=== PATIENT | male | born 1990 | race Caucasian/White ===

== ENCOUNTER 2018-03-27 10:22 | Emergency (ER) | payer OTHER ==
--- NOTE | 2018-03-27 11:25 | ER Document Report ---
ED GI Bleed / Rectal Pain - General Chief Complaint: Rectal Bleeding Stated Complaint: BLOODY STOOLS, LEFT FOOT SWELLING Time Seen by Provider: 03/27/18 10:47 Notes: 27-year-old male to the emergency department for evaluation of rectal bleeding. Patient states that over the last several days he has had increased amount of blood in his stool. Denies any pain. Denies any weakness, chills, sweats or other issues. Patient is a 6 foot male who weighs approximately 450 pounds. 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 Has also noticed that his increasing amount of swelling in his feet. Intermittent shortness of breath at times. Does endorse a fairly poor diet. No other significant problems. Strong family history of heart disease and obesity. Father had open heart surgery and bypass surgery. TRAVEL OUTSIDE OF THE [place] IN LAST 30 DAYS: No - HPI Patient complains to provider of: Bright red bld from rect. Onset: Last week Timing/Duration: Constant Quality of pain: No pain - Related Data Allergies/Adverse Reactions: No Known Allergies Allergy (Verified 03/27/18 10:27) Past Medical History - General Information source: Patient - Social History Smoking Status: Former Smoker Chew tobacco use (# tins/day): Yes Frequency of alcohol use: Social Drug Abuse: None Lives with: Spouse/Significant other Family History: Reviewed & Not Pertinent Patient has suicidal ideation: No Patient has homicidal ideation: No Renal/ Medical History: Denies: Hx Peritoneal Dialysis - Immunizations Hx Diphtheria, Pertussis, Tetanus Vaccination: Yes Review of Systems - Review of Systems Notes: Constitutional: denies: Chills, Diaphoresis, Fever, Malaise, Weakness EENT: denies: Eye discharge, Blurred vision, Tearing, Double vision, Nose congestion, Nose discharge, Throat swelling, Mouth pain Cardiovascular: denies: Palpitations, Heart racing, Orthopnea, Chest pain. Possible sleep apnea, complaining of some peripheral edema Respiratory: denies: Cough, Hurts to breathe, Wheezing, Shortness of breath Gastrointestinal: denies: Abdominal pain, Diarrhea, Nausea, Vomiting, Black stools,. Complaining of some bright red blood in the stool. Genitourinary: denies: Burning, Dysuria, Discharge, Frequency, Flank pain, Hematuria Musculoskeletal: denies: Joint pain, Joint swelling, Muscle pain, Muscle stiffness, back pain Hematologic/Lymphatic: denies: Anemia, Easy bleeding, Easy bruising, Blood clots Neurological/Psychological: denies: Confusion, Dementia, Depression, Loss of consciousness Skin: No lesions, no masses, no skin breakdown, no abscesses Physical Exam - Vital signs Vitals: Temp Pulse Resp BP Pulse Ox 97.8 F 72 14 143/83 H 97 03/27/18 10:38 03/27/18 10:38 03/27/18 10:38 03/27/18 10:38 03/27/18 10:38 Interpretation: Normal - General General appearance: Appears well, Alert - HEENT Head: Normocephalic, Atraumatic Eyes: Normal Pupils: PERRL - Respiratory Respiratory status: No respiratory distress Chest status: Nontender Breath sounds: Normal Chest palpation: Normal - Cardiovascular Rhythm: Regular Heart sounds: Normal auscultation Murmur: No - Abdominal Inspection: Normal Distension: No distension Bowel sounds: Normal Tenderness: Nontender Organomegaly: No organomegaly - Rectal Tenderness: No Stool: Heme positive Hemorrhoids: Internal, External Prostate: Normal - Back Back: Normal, Nontender - Extremities General upper extremity: Normal inspection, Nontender, Normal color, Normal ROM , Normal temperature General lower extremity: Normal inspection, Nontender, Edema - Trace edema bilateral lower extremities, Normal color, Normal ROM, Normal temperature, Normal weight bearing. No: Nicolasa's sign - Neurological Neuro grossly intact: Yes Cognition: Normal Orientation: AAOx4 [place] Coma Scale Eye Opening: Spontaneous [place] Coma Scale Verbal: Oriented [place] Coma Scale Motor: Obeys Commands [place]ung Coma Scale Total: 15 Speech: Normal Motor strength normal: LUE, RUE, LLE, RLE Sensory: Normal - Psychological Associated symptoms: Normal affect, Normal mood - Skin Skin Temperature: Warm Skin Moisture: Dry Skin Color: Normal Course - Re-evaluation Re-evalutation: 03/27/18 12:44 Laboratory 03/27/18 03/27/18 03/27/18 11:15 11:36 11:36 WBC 11.9 H RBC 5.18 Hgb 15.0 Hct 44.0 MCV 85 MCH 29.0 MCHC 34.1 RDW 13.9 Plt Count 338 Seg Neutrophils % 64.5 Lymphocytes % 24.1 Monocytes % 6.3 Eosinophils % 4.2 Basophils % 0.9 Absolute Neutrophils 7.7 Absolute Lymphocytes 2.9 Absolute Monocytes 0.7 Absolute Eosinophils 0.5 Absolute Basophils 0.1 PT 12.9 INR 0.93 APTT 32.1 Sodium Potassium Chloride Carbon Dioxide Anion Gap BUN Creatinine Est GFR ( Amer) Est GFR (Non-Af Amer) Glucose Hemoglobin A1c % Calcium Total Bilirubin Direct Bilirubin Neonat Total Bilirubin Neonat Direct Bilirubin Neonat Indirect Bili AST ALT Alkaline Phosphatase NT-Pro-B Natriuret Pep Total Protein Albumin Triglycerides Cholesterol LDL Cholesterol Direct VLDL Cholesterol HDL Cholesterol Stool Occult Blood POSITIVE 03/27/18 03/27/18 03/27/18 11:36 11:36 11:36 WBC RBC Hgb Hct MCV MCH MCHC RDW Plt Count Seg Neutrophils % Lymphocytes % Monocytes % Eosinophils % Basophils % Absolute Neutrophils Absolute Lymphocytes Absolute Monocytes Absolute Eosinophils Absolute Basophils PT INR APTT Sodium 141.1 Potassium 4.3 Chloride 102 Carbon Dioxide 33 H Anion Gap 6 BUN 14 Creatinine 0.93 Est GFR ( Amer) > 60 Est GFR (Non-Af Amer) > 60 Glucose 95 Hemoglobin A1c % 5.3 Calcium 9.1 Total Bilirubin 0.6 Direct Bilirubin 0.1 Neonat Total Bilirubin Not Reportable Neonat Direct Bilirubin Not Reportable Neonat Indirect Bili Not Reportable AST 23 ALT 36 Alkaline Phosphatase 75 NT-Pro-B Natriuret Pep 38 Total Protein 7.1 Albumin 4.0 Triglycerides 124 Cholesterol 129.65 LDL Cholesterol Direct 55 VLDL Cholesterol 25.0 HDL Cholesterol 55 Stool Occult Blood 03/27/18 12:[address] Montalvo with gastroenterology. Does not feel patient needs to have an emergent endoscopy however would love to see patient as an outpatient. At this time I am going to recommend some treatment for hemorrhoids. Will need good close follow-up for possible colonoscopy. This is explained to the patient. Currently he has no abdominal symptoms and no pain so no CT scan is warranted in my opinion. Even though he has reported some lower extremity edema there is no signs of heart failure with a normal chest x-ray and a normal BNP as well as EKG. His hemoglobin A1c is 5.3 and his lipid panel is fairly unremarkable with the exception of some elevated triglycerides which would be consistent with what he is telling me that he eats a lot of carbohydrates. I have given him a long consultation with regards to weight loss. Currently recommend that he return with he begins to feel lightheaded, dizzy, develops abdominal pain, fever, worsening bleeding or other concerns. - Vital Signs Vital signs: Temp Pulse Resp BP Pulse Ox 97.8 F 72 14 143/83 H 97 03/27/18 10:38 03/27/18 10:38 03/27/18 10:38 03/27/18 10:38 03/27/18 10:38 - Laboratory Result Diagrams: 03/27/18 11:36 03/27/18 11:36 Laboratory results interpreted by me: 03/27/18 03/27/18 11:36 11:36 WBC 11.9 H Carbon Dioxide 33 H - EKG Interpretation by Me EKG shows normal: Sinus rhythm, [place], Intervals, QRS Complexes, ST-T Waves Discharge - Discharge Clinical Impression: Rectal bleed, Morbid obesity Condition: Good Disposition: HOME, SELF-CARE Instructions: Rectal Bleeding, Unclear Cause ([facility]), Hemorrhoids ([facility]), HC Hemorrhoid Cream ([facility]) Prescriptions: Hydrocortisone [Procto-Kit] 28.35 gm RC QHS 5 Days #2 cream.gm. Referrals: YAZ PEDRO MD [ACTIVE STAFF] - Follow up in 3-5 days
[2018-03-27 11:48] LABS: ABSOLUTE BASOPHILS # (AUTO) 0.1 10^3/uL (0.0-0.2); ABSOLUTE EOSINOPHILS # (AUTO) 0.5 10^3/uL (0.0-0.6); ABSOLUTE LYMPHOCYTES (AUTO) 2.9 10^3/uL (0.5-4.7); ABSOLUTE MONOCYTES (AUTO) 0.7 10^3/uL (0.1-1.4); ABSOLUTE NEUT (AUTO) 7.7 10^3/uL (1.7-8.2); BASOPHILS % (AUTO) 0.9 % (0-2); EOSINOPHILS % (AUTO) 4.2 % (0-6); LYMPHOCYTES % (AUTO) 24.1 % (13-45); MEAN CORPUSCULAR HGB CONC 34.1 g/dL (32.0-36.0); MEAN CORPUSCULAR VOLUME 85 fl (80-97); MONOCYTES % (AUTO) 6.3 % (3-13); PLATELET COUNT 338 10^3/uL (150-450); RED BLOOD COUNT 5.18 10^6/uL (4.35-5.55); RED CELL DISTRIBUTION WIDTH 13.9 % (11.5-14.0); SEGMENTED NEUTROPHILS % (AUTO) 64.5 % (42-78); TOTAL CELLS COUNTED % (AUTO) 100 %; WHITE BLOOD COUNT 11.9 10^3/uL (4.0-10.5)
[2018-03-27 11:57] LABS: INTERNATIONAL RATION (INR) 0.93; PROTHROMBIN TIME 12.9 SEC (11.4-15.4)
[2018-03-27 11:58] LABS: PARTIAL THROMBOPLASTIN TIME 32.1 SEC (23.5-35.8)
[2018-03-27 12:21] LABS: ALANINE AMINOTRANSFERASE 36 U/L (21-72); ALKALINE PHOSPHATASE 75 U/L (38-126); ANION GAP 6 (5-19); ASPARTATE AMINO TRANSFERASE 23 U/L (17-59); BILIRUBIN,DIRECT 0.1 mg/dL (0.0-0.4); BILIRUBIN,TOTAL 0.6 mg/dL (0.2-1.3); BLOOD UREA NITROGEN 14 mg/dL (7-20); CALCIUM 9.1 mg/dL (8.4-10.2); CARBON DIOXIDE 33 mmol/L (22-30); CHLORIDE 102 mmol/L (98-107); CHOLESTEROL 129.65 mg/dL (0-200); GLUCOSE 95 mg/dL (75-110); POTASSIUM 4.3 mmol/L (3.6-5.0); SODIUM 141.1 mmol/L (137-145); TOTAL PROTEIN 7.1 g/dL (6.3-8.2); TRIGLYCERIDES 124 mg/dL (<150)
[2018-03-27 12:31] LABS: DIRECT LDL 55 mg/dL (<100)
--- NOTE | 2018-03-27 12:34 | RADIOLOGY REPORT (SQ) ---
EXAM DESCRIPTION: CHEST SINGLE VIEW COMPLETED DATE/TIME: 03/27/2018 11:57 am REASON FOR STUDY: sob COMPARISON: None. EXAM PARAMETERS: NUMBER OF VIEWS: One view. TECHNIQUE: Single frontal radiographic view of the chest acquired. RADIATION DOSE: NA LIMITATIONS: None. FINDINGS: LUNGS AND PLEURA: No opacities, masses or pneumothorax. No pleural effusion. MEDIASTINUM AND HILAR STRUCTURES: No masses. Contour normal. HEART AND VASCULAR STRUCTURES: Heart normal in size. Normal vasculature. BONES: No acute findings. HARDWARE: None in the chest. OTHER: No other significant finding. IMPRESSION: NO ACUTE RADIOGRAPHIC FINDING IN THE CHEST. TECHNICAL DOCUMENTATION: JOB ID: [id number] [employer]- All Rights Reserved Reading location - IP/workstation name: [email or web address]
[2018-03-27 13:26] VITALS: BP 126/74
--- NOTE | 2018-03-27 21:08 | EKG REPORT ---
SEVERITY:- BORDERLINE ECG - SINUS RHYTHM INFERIOR Q WAVES, PROBABLY NORMAL VARIATION : Confirmed by: Leo Garcia 27-Mar-2018 21:06:48
== END 2018-03-27 13:27 | disposition home or self-care (01) ==
LOC: ER 10:22
DX: K62.5 Hemorrhage of anus and rectum (principal); E66.01 Morbid (severe) obesity due to excess calories; R60.0 Localized edema; R06.02 Shortness of breath; Z82.49 Family history of ischemic heart disease and other diseases of the circulatory system; Z83.49 Family history of other endocrine, nutritional and metabolic diseases; Z87.891 Personal history of nicotine dependence
CPT/HCPCS: 36415; 71045; 80053; 80061; 82272; 83036; 83880; 84443; 85025; 85610; 85730; 93005; 93010; 99284

== ENCOUNTER 2018-04-16 08:20 | Day surgery (SDC) | payer OTHER ==
[~2018-04-16 08:20] MED LIST: PROPOFOL INJ 200 MG/20 ML VIAL IV ONE
[2018-04-16] MEDS ORDERED: PROPOFOL INJ 200 MG/20 ML VIAL IV ONE (09:09)
[2018-04-16 09:57] VITALS: BP 133/79
--- NOTE | 2018-04-16 14:19 | Operative Report ---
Operative Report DATE OF SURGERY: 04/16/18 Operative Report: The risks, benefits and alternatives of the procedure including the risk of bleeding, perforation requiring surgery are explained to the patient in detail and informed consent is obtained. Patient is brought back to the endoscopy suite and placed in the left, lateral decubital position. Timeout was called. Propofol medication is administered. A rectal examination is done which did not reveal any masses, tears or fissures. An Olympus videoscope was introduced into the patient's rectum. The scope was then carefully advanced all the way to the cecum. Cecum was identified by the usual anatomical landmarks including the ileocecal valve as well as the appendiceal office. Photodocumentation was obtained. The scope was then sequentially pulled back via the various segments of the colon including the ascending colon, hepatic flexure, transverse colon, splenic flexure, descending colon and finally into the rectosigmoid portions of the colon. Retroflexion maneuvers performed. PREOPERATIVE DIAGNOSIS: Rectal bleeding POSTOPERATIVE DIAGNOSIS: Mild nonspecific inflammation on the right side of the colon status post biopsy. Internal hemorrhoids OPERATION: Colonoscopy with biopsy SURGEON: YAZ PEDRO ANESTHESIA: LMAC TISSUE REMOVED OR ALTERED: As noted above. COMPLICATIONS: None. ESTIMATED BLOOD LOSS: None. INTRAOPERATIVE FINDINGS: As noted above. PROCEDURE: Patient tolerated the procedure well. No immediate postprocedure complications are noted. Patient discharged in good condition. Discharge date 04/16/2018. Discharge diet: Regular. Discharge activity: Regular. 2-3-week follow-up to discuss findings. Patient is instructed call the office or proceed to the emergency room should there be any further proximal questions. Wait on the pathology.
== END 2018-04-16 09:50 | disposition home or self-care (01) ==
LOC: END 08:20
PROVIDERS: ATTEND Internal Medicine Gastroenterology
DX: K52.9 Noninfective gastroenteritis and colitis, unspecified (principal); K64.8 Other hemorrhoids; K62.5 Hemorrhage of anus and rectum; Z87.891 Personal history of nicotine dependence
CPT/HCPCS: 45380; 88305 ×2; J2704; 811